=== PATIENT | male | born 1945 | race Caucasian/White ===

== ENCOUNTER 2019-11-27 15:43 | Inpatient (IN) | payer OTHER, MEDICAID ==
[~2019-11-27] VITALS: Ht 91.4 cm; Wt 73.9 kg
--- NOTE | 2019-11-27 15:43 | NUR ---
CHRISTOS RM ALS TO ER BED 04
[2019-11-27] MEDS ORDERED: NACL 0.9% 1,000 ML IV SCH (15:49)
[2019-11-27] MEDS ORDERED: cefTRIAXone 1,000 MG in DEXT 5% MINI-BAG PLUS 50 ML IV ONE (15:50)
[2019-11-27 16:14] VITALS: BP 100/68
--- NOTE | 2019-11-27 16:33 | NUR ---
74 YO MALE BIBA FROM [facility] C/O X 1 HOUR. PT WAS DESATURATING TO 84%; 3 BREATHING TREATMENTS WERE DONE IN [facility]. MASK APPLIED IN AMBULANCE, WHICH RAISED SAT TO 92%. PT WITH NOTED DEEP BREATHING, LUNGS CLEAR BL; PATIENT POSITIONED FOR COMFORT; HOB ELEVATED; BEDRAILS UP X2; BED DOWN. ER MD MADE AWARE OF PT STATUS.
[2019-11-27 16:46] LABS: BASOPHILS % (AUTO) 0.3 % (0.0-2.0); EOSINOPHILS % (AUTO) 0.1 % (0.0-4.0); HEMATOCRIT 37.4 % (36-52); HEMOGLOBIN 11.9 g/dL (12.0-18.0); LYMPHOCYTES # (AUTO) 0.8 K/uL (2.0-11.5); LYMPHOCYTES % (AUTO) 5.4 % (20.5-51.1); MEAN CORPUSCULAR HEMOGLOBIN 31 pg (27-31); MEAN CORPUSCULAR HGB CONC 32 g/dL (33-37); MONOCYTES # (AUTO) 1.1 K/uL (0.8-1.0); MONOCYTES % (AUTO) 7.4 % (1.7-9.3); NEUTROPHILS # (AUTO) 12.4 K/uL (1.8-7.7); NEUTROPHILS % (AUTO) 86.8 % (42.2-75.2); PLATELET COUNT (AUTO) 331 K/uL (140-450); RED CELL DISTRIBUTION WIDTH 14.5 % (11.6-13.7); WHITE BLOOD COUNT (AUTO) 14.3 K/uL (4.8-10.8)
[2019-11-27 17:19] LABS: ALBUMIN 2.8 g/dL (3.4-5.0); ANION GAP 15.4 (8-16); ASPARTATE AMINOTRANSFERASE 112 U/L (15-37); CARBON DIOXIDE 28.4 mmol/L (21-32); CHLORIDE 95 mmol/L (98-107); CREATININE 1.8 mg/dL (0.7-1.3); GLUCOSE 143 mg/dL (74-106); POTASSIUM 5.8 mmol/L (3.5-5.1); SODIUM SERUM 133 mmol/L (136-145); TOTAL BILIRUBIN 0.2 mg/dL (0.0-1.0)
[2019-11-27 17:44] LABS: UREA NITROGEN, BLOOD 65 mg/dL (7-18)
[2019-11-27 18:08] LABS: APPEARANCE,URINE SL CLOUDY (CLEAR); BILIRUBIN,URINE 2+ (NEGATIVE); BLOOD, URINE TRACE-I (NEGATIVE); COLOR,URINE YELLOW (YELLOW); LEUKOCYTE ESTERASE ,URINE 2+ (NEGATIVE); NITRITE, URINE NEGATIVE (NEGATIVE); PH,URINE 6.5 (5.0-9.0); UGLUCOSE NEGATIVE (NEGATIVE)
[2019-11-27] MEDS ORDERED: NACL 0.9% 1,000 ML IV ONE (18:10)
[2019-11-27 18:13] LABS: RBC,URINE 0-5 /HPF (0-5); WBC,URINE 16-25 (MOD) /HPF (0-5)
[2019-11-27] MEDS ORDERED: ONDANSETRON 4 MG/2 ML VIAL IM/IVP PRN (18:15)
[2019-11-27] MEDS ORDERED: HYDROcodone/APAP 5/325 MG 1 TAB TAB PO PRN (18:15)
[2019-11-27] MEDS ORDERED: SODIUM POLYSTYRENE 15 GM/60 ML UDBTL PO ONE (18:15)
[2019-11-27] MEDS ORDERED: DOCUSATE SODIUM 100 MG GELCAP PO PRN (18:15)
[2019-11-27] MEDS ORDERED: ACETAMINOPHEN 325 MG TAB PO PRN (18:15)
[2019-11-27] MEDS ORDERED: MORPHINE SULFATE 2 MG/ML SYR IVP PRN (18:15)
[2019-11-27 19:10] LABS: MAGNESIUM 2.3 mg/dL (1.8-2.4); PHOSPHORUS 6.9 mg/dL (2.5-4.9); THYROID STIMULATING HORMONE 2.16 uIU/mL (0.34-3.74)
[2019-11-27] MEDS ORDERED: cefTRIAXone 1,000 MG VIAL ONE (19:10)
--- NOTE | 2019-11-27 19:15 | NUR ---
REPORT RECEIVED FROM KEVON COUCH
--- NOTE | 2019-11-27 19:15 | NUR ---
PER KEVON RN PT HAS HAD MANY PREVIOUS ATTEMPTS AT GETTING AN IV FROM VARIOUS B[employer]FU[employer]S TECHNOLOGY MANAGER ATTEMPTING
--- NOTE | 2019-11-27 19:18 | NUR ---
PT IV SITE REDNESS WITH SWELLING, PT IV DISCONTINUED.
--- NOTE | 2019-11-27 19:30 | NUR ---
ATTEMPTS MADE AT IV ACCESS, UNABLE TO GET IV. DR MOISE MADE AWARE
--- NOTE | 2019-11-27 19:50 | NUR ---
DR MOISE NOTIFIED THAT PT NOT ABLE TO DRINK KAYAXELATE, STATES HE WILL CHANGE TO RECTAL
[2019-11-27] MEDS ORDERED: SODIUM POLYSTYRENE 15 GM/60 ML UDBTL PR ONE (19:55)
[2019-11-27 20:30] VITALS: BP 136/60
--- NOTE | 2019-11-27 20:30 | NUR ---
DR PEACOCK AWARE UNABLE TO GET REPEAT BLOOD DRAW FOR PT
--- NOTE | 2019-11-27 20:30 | NUR ---
DR PEACOCK MADE AWARE UNABLE TO GET LINE INTO PATIENT, STATES HE WILL HAVE TO DO A CENTRAL LINE
[2019-11-27] MEDS ORDERED: INSULIN REGULAR, HUMAN 100 UNIT/ML VIAL IVP SCH (20:40)
[2019-11-27] MEDS ORDERED: CALCIUM CHLORIDE 10% 100 MG/ML SYR IVP ONE (20:40)
[2019-11-27] MEDS ORDERED: CALCIUM GLUCONATE 10% 1,000 MG in NACL 0.9% 50 ML IV SCH (20:45)
[2019-11-27] MEDS ORDERED: ALBUTEROL SULFATE/IPRATROPIU 3 ML SOL IH SCH (20:55)
[2019-11-27] MEDS ORDERED: DEXTROSE 50% 50 ML SYR IVP SCH (20:55)
[2019-11-27] MEDS ORDERED: ALBUTEROL SULFATE/IPRATROPIU 3 ML SOL IH PRN (21:20)
--- NOTE | 2019-11-27 21:28 | NUR ---
RECEIVED FROM ER PER RUTHY AWAKE AND ALERT. A/O X 1. AFEBRILE. TELEMETRY MONITORING. PT. WITH COLOSTOMY AND MCGARRY CATHETER IN PLACE. DX. OF HYPOXIA FROM SNF. PRESENTLY WITH 02 NON REBREATHER MASK AND 02 SAT AT 96 %. PT. WITH UTI . NO FEVER. SKIN INTACT WITH AKA BILATERALLY. NEEDS WILL BE ANTICIPATED AND WILL BE MET. TOTAL CARE. WILL BE TURNED Q 2H. PT. PER REPORT NO IVF SITE AND BY LOBSTERMAN FOR PICC LINE INSERTION BY RESIDENT .
--- NOTE | 2019-11-27 21:30 | NUR ---
Patient will be admitted to care of DR JAY. Admited to TELE. Will go to room 122B. Belongings list completed. Report to GEMMA COUCH.
--- NOTE | 2019-11-27 22:47 | NUR ---
RESIDENT MD IN HERE AND PLACED CENTRAL LINE ON PT. ULTRA SOUND TECH IN HERE AND X-RAY TECH IN HERE TO CONFIRM PLACEMENT.
[2019-11-27] MEDS ORDERED: OMEP40EC14 PO (23:11)
[2019-11-27] MEDS ORDERED: ATOR10TA PO (23:11)
[2019-11-27] MEDS ORDERED: PUL.5N NEB (23:11)
[2019-11-27] MEDS ORDERED: MULT-153 PO (23:11)
[2019-11-27] MEDS ORDERED: CARV6.25 PO (23:11)
[2019-11-27] MEDS ORDERED: DILT-135 PO (23:11)
[2019-11-27] MEDS ORDERED: PRED5TAB7 PO (23:11)
[2019-11-27] MEDS ORDERED: CARB200T4 PO (23:11)
[2019-11-27] MEDS ORDERED: ALBU3SOL83 IH (23:11)
[2019-11-27] MEDS ORDERED: MEMA10TA PO (23:11)
[2019-11-27] MEDS ORDERED: PAM25 PO (23:11)
[2019-11-27] MEDS ORDERED: LACT-81 PO (23:11)
[2019-11-27] MEDS ORDERED: RIVA20TA PO (23:11)
[2019-11-28] VITALS: BP 112/61
--- NOTE | 2019-11-28 00:28 | NUR ---
PLACED PATIENT ON BiPAP DUE TO INCREASED WOB. PT TOLERATING BiPAP WELL. PT HAS SCABS ON THE NASAL BRIDGE WHICH DR. PEACOCK WAS NOTIFIED BEFORE PLACING PT ON BiPAP. PROTECTIVE GEL WAS APPLIED. WILL CONTINUE TO MONITOR.
[2019-11-28] MEDS ORDERED: PIPERACILLIN/TAZOBACTAM 2.25 GM VIAL IV ONE ×2 (00:47→06:48)
[2019-11-28] MEDS: PIPERACILLIN/TAZOBACTAM 2.25 GM in DEXTROSE 5% 50 ML IV SCH ×4 (00:48→23:06)
[2019-11-28] MEDS: DEXT 5% /NACL 0.9% 1,000 ML IV SCH ×2 (00:50→10:46)
--- NOTE | 2019-11-28 01:23 | NUR ---
PER RESIDENT MD TO NOT ADMINISTER ROCEPHIN IVPB ANYMORE. CENTRAL LINE OK TO USE PER MD.
[2019-11-28 01:51] LABS: ANION GAP 11.2 (8-16); CARBON DIOXIDE 30.5 mmol/L (21-32); CHLORIDE 98 mmol/L (98-107); GLUCOSE 121 mg/dL (74-106); POTASSIUM 5.7 mmol/L (3.5-5.1); SODIUM SERUM 134 mmol/L (136-145)
[2019-11-28 01:55] LABS: PROTHROMBIN TIME 9.8 secs (10.8-13.4)
[2019-11-28] MEDS ORDERED: DEXTROSE 50% 50 ML SYR IVP SCH (02:00)
[2019-11-28] MEDS ORDERED: INSULIN REGULAR, HUMAN 100 UNIT/ML VIAL IVP SCH (02:00)
[2019-11-28] MEDS ORDERED: CALCIUM GLUCONATE 10% 1,000 MG in NACL 0.9% 50 ML IV SCH (02:00)
[2019-11-28 02:04] LABS: UREA NITROGEN, BLOOD 72 mg/dL (7-18)
[2019-11-28] MEDS ORDERED: CALCIUM GLUCONATE 10% 1000 MG/10 ML VIAL ONE (02:15)
--- NOTE | 2019-11-28 02:55 | NUR ---
DECREASED EPAP TO DECREASED FI02 AND INCREASE PRESSURE SUPPORT AFTER OBTAINING ABG. Addendum: 11/28/19 at 0630 by Ryan Johnson RT DR PEACOCK WAS NOTIFIED. ORDER WAS OBTAINED.
--- NOTE | 2019-11-28 02:57 | NUR ---
PT. KEPT COMFORTABLE. ATTENDED TO BY RESPIRATORY THERAPIST AND RESIDENT MD FREQUENTLY. ON BIPAP. CENTRAL LINE 2 PORTS PATENT AND INTACT. FLUSHED WITH NS 10 ML PER PORT. Addendum: 11/28/19 at 0550 by Barb Bianchi RN CENTRAL LINE WITH 3 PORTS TO [facility].
[2019-11-28 04:00] VITALS: BP 95/60
--- NOTE | 2019-11-28 04:40 | NUR ---
PT. NEEDS WILL BE MET. TOTAL CARE. PRESENTLY PLACED ON BIPAP BY RESPIRATORY THERAPIST ORDERED BY RESIDENT MD. MCGARRY CATHETER IN PLACE WITH COLOSTOMY BAG IN PLACE. TURNED Q 2H WITH PILLOW SUPPORT TO PRESSURE AREAS. TELE,METRY MONITORING. AFEBRILE.
--- NOTE | 2019-11-28 04:50 | NUR ---
RESIDENT MD AWARE THAT PT. UNABLE TO SWALLOW AT THIS TIME REPORTED BY PRODUCT HANDLER. PT. WITH GENERALIZED WEAKNESS RT AFFLICTION. PER MD P.O. MEDICATION WAS TRIED TO BE ADMINISTERED IN ER BUT PT. REFUSED AND LIKELY WILL JUST POCKET MEDICATION. NEEDS WILL BE ANTICIPATED AND WILL BE MET. TOTAL CARE AT THIS TIME. TELEMETRY MONITORING.
[2019-11-28 06:37] LABS: BASOPHILS % (AUTO) 0.1 % (0.0-2.0); EOSINOPHILS % (AUTO) 0.2 % (0.0-4.0); HEMATOCRIT 31.8 % (36-52); LYMPHOCYTES # (AUTO) 0.9 K/uL (2.0-11.5); LYMPHOCYTES % (AUTO) 6.3 % (20.5-51.1); MEAN CORPUSCULAR HEMOGLOBIN 30 pg (27-31); MEAN CORPUSCULAR HGB CONC 32 g/dL (33-37); MEAN CORPUSCULAR VOLUME 96.1 fL (80-94); MONOCYTES # (AUTO) 1.5 K/uL (0.8-1.0); MONOCYTES % (AUTO) 10.9 % (1.7-9.3); NEUTROPHILS # (AUTO) 11.2 K/uL (1.8-7.7); NEUTROPHILS % (AUTO) 82.5 % (42.2-75.2); PLATELET COUNT (AUTO) 288 K/uL (140-450); RED BLOOD CELL COUNT(AUTO) 3.31 MIL/uL (4.20-6.10); RED CELL DISTRIBUTION WIDTH 14.1 % (11.6-13.7); WHITE BLOOD COUNT (AUTO) 13.6 K/uL (4.8-10.8)
--- NOTE | 2019-11-28 06:58 | NUR ---
RECEIVED PT ON BIPAP 15/03 R 14 FIO2 40%. PT TOLERATING WELL AT THIS TIME. PROTECTA GEL IS PLACED UNDER MASK FOR SKIN PROTECTION, SKIN IS INTACT THERE IS SLIGHT REDNESS NEAR CARCINOMA SITE BUT NO BREAKDOWN. BIPAP IS PLUGGED INTO A RED OUTLET WITH ALARMS ON AND FUNCTIONING. WILL CONTINUE TO MONITOR.
[2019-11-28] MEDS: ALBUTEROL SULFATE/IPRATROPIU 3 ML SOL IH SCH ×3 (06:59→19:00)
[2019-11-28 07:01] LABS: CHOL/HDL RATIO 2.8 (1-4.5)
[2019-11-28 07:07] LABS: CARBON DIOXIDE 30.4 mmol/L (21-32); CHLORIDE 100 mmol/L (98-107); CREATININE 1.9 mg/dL (0.7-1.3); GLUCOSE 93 mg/dL (74-106); POTASSIUM 5.4 mmol/L (3.5-5.1); SODIUM SERUM 135 mmol/L (136-145)
[2019-11-28 07:11] LABS: MAGNESIUM 2.1 mg/dL (1.8-2.4); PHOSPHORUS 6.8 mg/dL (2.5-4.9)
[2019-11-28 07:21] LABS: UREA NITROGEN, BLOOD 73 mg/dL (7-18)
--- NOTE | 2019-11-28 07:26 | NUR ---
ENDORSED TO TH NEXT RN FOR CONTINUITY OF CARE. RESPIRATORY THERAPIST IN HERE TO SEE PT. AWAKE AT THIS TIME. TRYING TO TAKE OUT MASK. INFORMED HIM THAT HE REALLY NEEDS IT AND NOT TO TAKE IT OUT.
--- NOTE | 2019-11-28 07:30 | NUR ---
RECEIVED REPORT FROM NIGHT NURSE. PT IN STABLE CONDITION, NO DISTRESS NOTED, FLACC 0. RESPIRATIONS EVEN AND UNLABORED RECEIVING OXYGEN VIA EPAP. SKIN INTACT. CENTRAL R IJ IN PLACE PATENT AND ASYMPTOMATIC INFUSING PER ORDER. MCGARRY CATHETER IN PLACE. BED IN LOW POSITION, SAFETY MEASURES IN PLACE, CALL LIGHT WITHIN REACH. WILL CONTINUE TO MONITOR.
[2019-11-28 08:00] VITALS: BP 124/58
[2019-11-28] MEDS: SEVELAMER CARBONATE 800 MG TAB PO SCH ×3 (08:00→16:01)
[2019-11-28] MEDS: carBAMazepine 200 MG TAB PO SCH (09:00)
[2019-11-28] MEDS: DILTIAZEM 120 MG CAPER PO SCH (09:00)
[2019-11-28] MEDS: CARVEDILOL 6.25 MG TAB PO SCH ×2 (09:00→21:00)
[2019-11-28] MEDS: NORTRIPTYLINE 25 MG CAP PO SCH (09:00)
[2019-11-28] MEDS: MEMANTINE 10 MG TAB PO SCH ×2 (09:00→21:00)
[2019-11-28] MEDS: LACTOBACILLUS RHAMNOSUS GG 1 EACH CAP PO SCH (09:00)
[2019-11-28] MEDS: predniSONE 5 MG TAB PO SCH (09:00)
[2019-11-28] MEDS: PANTOPRAZOLE 40 MG INJ VIAL IVP SCH (09:00)
[2019-11-28] MEDS: MULTIVITAMIN 1 TAB PO SCH (09:00)
--- NOTE | 2019-11-28 10:12 | NUR ---
PATIENT HAS BEEN SCREENED AND CATEGORIZED HIGH NUTRITION RISK. PATIENT WILL BE SEEN WITHIN 1-2 DAYS OF ADMISSION. 11/28/19-11/29/[address]
--- NOTE | 2019-11-28 10:29 | NUR ---
MADE ATTEMPT TO ADMINISTER ORAL MEDICATIONS PER ORDER OF DR PEACOCK, BUT PT UNABLE TO SWALLOW MEDICATIONS. 0900 PO MEDICATIONS NOT ADMINISTERED. WILL CONTINUE TO MONITOR.
--- NOTE | 2019-11-28 11:19 | NUR ---
PT SEEN BY WOUND CARE NURSE, PICTURE TAKEN AND PLACED IN FILE FOR WOUND ON BRIDGE OF NOSE. WILL CONTINUE TO MONITOR.
[2019-11-28 12:00] VITALS: BP 126/64
--- NOTE | 2019-11-28 13:04 | NUR ---
PT TAKEN OFF BIPAP TO DECREASE PRESSURE ON SKIN, PLACED ON 4L OXY SPO2 92%. PT NOT IN ANY DISTRESS AT THIS TIME. WILL CONTINUE TO MONITOR.
--- NOTE | 2019-11-28 13:28 | NUR ---
*S.T. Bedside Swallow Eval completed* See report. Pt presents w/ severe oropharyngeal dysphagia c/b difficulty managing oral boluses, requiring max verbal and tactile cues to initiate, severely delayed pharyngeal swallow response w/ delayed wet coughing after swallows across all textures. Pt is deemed at high risk for aspiration. Recommend: 1) Strict NPO w/ non-oral means of nutrition, hydration and meds. 2) Trial swallow tx w/ ST 2x/1wk. 3) Aggressive oral care. Pt's rehab potential is guarded due to hx of dementia and severity of dysphagia currently. Endorsed to KHOA Doherty. Time 6657-5000
[2019-11-28 16:00] VITALS: BP 130/62
[2019-11-28] MEDS ORDERED: FUROSEMIDE 100 MG/10 ML VIAL IV SCH (16:00)
[2019-11-28] MEDS: RIVAROXABAN 15 MG TAB PO SCH (16:01)
--- NOTE | 2019-11-28 16:02 | NUR ---
MEDICATIONS ADMINISTERED PER ORDER. ORAL MEDICATIONS HELD DUE TO PTS INABILITY TO SWALLOW. NO DISTRESS NOTED. SAFETY MEASURES IN PLACE. WILL CONTINUE TO MONITOR.
--- NOTE | 2019-11-28 17:03 | NUR ---
PT NASOTRACHEAL SUCTIONED WITHOUT INCIDENT, OBTAINED LARGE AMOUNT OF THICK PALE YELLOW SECRETIONS. POST SUCTION PT PLACED BACK ON BIPAP 14/5 R 14 FIO2 40%. NURSE MADE AWARE. WILL CONTINUE TO MONITOR.
--- NOTE | 2019-11-28 18:05 | NUR ---
PT IN BED ASLEEP, NO DISTRESS NOTED. O2 SAT 100% ON BIPAP. SAFETY MEASURES IN PLACE. CALL LIGHT WITHIN REACH, WILL CONTINUE TO MONITOR.
--- NOTE | 2019-11-28 19:15 | NUR ---
REPORT GIVEN TO NIGHT NURSE FOR CONTINUITY OF CARE.
--- NOTE | 2019-11-28 19:20 | NUR ---
RECEIVED PT IN STABLE CONDITION FROM AM NURSE. PT IS AWAKE,ALERT. ON TELE MONITOR. ON BIPAP O2 SAT 99%. NO RESPIRATORY DISTRESS NOTED. BEDREST. WITH WILLIAM AKA. SUPRAPUBIC CATHETER IN PLACED CONNECTED TO MCGARRY BAG. COLOSTOMY WITH HARD STOOL . BED ON LOW POSITION. SIDE RAILS UP X2. CALL LIGHT WITHIN EASY REACH. WILL CONTINUE TO MONITOR.
[2019-11-28 20:30] VITALS: BP 151/86
[2019-11-28] MEDS: ATORVASTATIN 20 MG TAB PO SCH (21:00)
--- NOTE | 2019-11-28 21:00 | NUR ---
MADE ROUNDS. PT ASLEEP. NO S/S OF MANY RESPIRATORY DISTRESS NOTED. 02 SAT 98%.
--- NOTE | 2019-11-28 23:00 | NUR ---
DR. MARIE MADE AWARE THAT PT CAN'T TAKE PO MEDS. SHE SAID OK TO HOLD PO MEDS TONIGHT. JUST TO LET HER KNOW OF ANY ABNORMAL BP .
--- NOTE | 2019-11-28 23:45 | NUR ---
BIPAP ALARMING. CAME TO CHECK ON PT. VERY CONGESTED. WITH SOME COUGH. NEED SUCTIONING. RT CAME.
[2019-11-29 00:20] VITALS: BP 152/78
[2019-11-29] MEDS: DEXT 5% /NACL 0.9% 1,000 ML IV SCH ×3 (01:31→23:43)
--- NOTE | 2019-11-29 02:00 | NUR ---
PT ASLEEP. NO S/S OF ANY RESPIRATORY DISTRESS NOTED. WILL CONTINUE TO MONITOR.
[2019-11-29 03:50] VITALS: BP 149/97
--- NOTE | 2019-11-29 03:50 | NUR ---
PT AWAKE. RT GAVE BREATHING TREATMENT. O2 SAT 95% WITH FIO2 30 %. ABLE TO GET SPECIMEN FOR INFLUENZA A AND B. SEND TO LAB.
--- NOTE | 2019-11-29 05:00 | NUR ---
PT REPOSITIONED FOR COMFORT. COLOSTOMY BAG FULL WITH HARD STOOL. BAG CHANGED TO A NEW ONE.
[2019-11-29 05:53] LABS: ANION GAP 8.6 (8-16); CARBON DIOXIDE 33.5 mmol/L (21-32); CHLORIDE 103 mmol/L (98-107); CREATININE 1.1 mg/dL (0.7-1.3); GLUCOSE 105 mg/dL (74-106); POTASSIUM 4.1 mmol/L (3.5-5.1); SODIUM SERUM 141 mmol/L (136-145); UREA NITROGEN, BLOOD 49 mg/dL (7-18)
[2019-11-29 05:59] LABS: BASOPHILS % (AUTO) 0.4 % (0.0-2.0); EOSINOPHILS % (AUTO) 0.3 % (0.0-4.0); HEMOGLOBIN 10.7 g/dL (12.0-18.0); LYMPHOCYTES # (AUTO) 0.8 K/uL (2.0-11.5); LYMPHOCYTES % (AUTO) 8.5 % (20.5-51.1); MEAN CORPUSCULAR HEMOGLOBIN 31 pg (27-31); MEAN CORPUSCULAR HGB CONC 32 g/dL (33-37); MEAN CORPUSCULAR VOLUME 95.4 fL (80-94); MONOCYTES % (AUTO) 10.8 % (1.7-9.3); NEUTROPHILS # (AUTO) 7.6 K/uL (1.8-7.7); PLATELET COUNT (AUTO) 325 K/uL (140-450); RED BLOOD CELL COUNT(AUTO) 3.46 MIL/uL (4.20-6.10); RED CELL DISTRIBUTION WIDTH 14.2 % (11.6-13.7); WHITE BLOOD COUNT (AUTO) 9.5 K/uL (4.8-10.8)
--- NOTE | 2019-11-29 06:00 | NUR ---
PT AWAKE. BIPAP ALARMING. CAME TO CHECK PT. PT HOLDING THE BIPAP TUBE, DISCONNECTED. CONNECTED BACK AND EXPLAINED TO PT NOT TO DO THAT. WILL CLOSELY MONITOR PT.
[2019-11-29 06:07] LABS: MAGNESIUM 1.9 mg/dL (1.8-2.4); PHOSPHORUS 3.9 mg/dL (2.5-4.9)
[2019-11-29] MEDS: ALBUTEROL SULFATE/IPRATROPIU 3 ML SOL IH SCH ×3 (06:11→20:22)
--- NOTE | 2019-11-29 06:11 | NUR ---
rec'd pt on kenan v60 bipap settings 14\5 rr 14 fio2 30% alarms and audible and ambu bag at side of bipap and bipap is plugged into red outlet, b\s are coarse bilaterally, no hhn given pt sleeping and high heart rate of 121 ptis wearing large face mask with redness to nose, pt is sleeping with no signs of distress noted at this time
[2019-11-29] MEDS: PIPERACILLIN/TAZOBACTAM 2.25 GM in DEXTROSE 5% 50 ML IV SCH ×3 (06:17→23:38)
--- NOTE | 2019-11-29 07:29 | NUR ---
ENDORSED PT IN STABLE CONDITION TO AM NURSE.
--- NOTE | 2019-11-29 07:30 | NUR ---
RECEIVED BEDSIDE REPORT FROM DATA WAREHOUSE DEVELOPER NURSE. PT IS AWAKE, NO S/S OF DISTRESS NOTED, ON BIPAP FIO2 30. R IJ CENTRAL LINE DOUBLE LUMEN INFUSING D5NS 50 ML/HR. SKIN INTACT ASIDE FROM BRUISING ON BUE'S. BLE'S ARE AMPUTATED ABOVE THE KNEE. PT HAS A COLOSTOMY BAG, CHANGED DURING DATA WAREHOUSE DEVELOPER. SUPRAPUBIC CATHETER IN PLACE. FALL PRECAUTIONS IN PLACE. CALL LIGHT IS WITHIN REACH. WILL CONTINUE TO MONITOR.
[2019-11-29 08:00] VITALS: BP 123/58
--- NOTE | 2019-11-29 10:01 | NUR ---
pt off bipap and placed on 7l oxymizer and gail crawford notified
--- NOTE | 2019-11-29 10:37 | NUR ---
PT SATTING 92-94% ON 7 L OXIMIZER WHEN PT IS REMINDED TO BREATHE WITH HIS NOSE. SATS NOTED TO GO DOWN TO 85-86% WHEN PT BREATHES WITH HIS MOUTH. PT BREATHES WITH HIS MOUTH MOST OF THE TIME. RT IS AWARE. PER DR CRAMER, PLAN IS TO WEAN PT OFF BIPAP.
--- NOTE | 2019-11-29 10:47 | NUR ---
DR WHITE AWARE THAT PT IS A HIGH RISK FOR ASPIRATION PER ST EVAL. HOLDING PO MEDS AT THIS TIME.
[2019-11-29 12:00] VITALS: BP 124/69
[2019-11-29] MEDS: SEVELAMER CARBONATE 800 MG TAB PO SCH ×3 (12:00→18:28)
--- NOTE | 2019-11-29 12:00 | NUR ---
i call [facility] talked to maida and verify the flu vaccine , given on Sep 2019.
--- NOTE | 2019-11-29 14:00 | NUR ---
*S.T. Treatment note* S: Pt seen at bedside w/ no family/caregiver present. Pt verbally denied pain. Pt off BiPap, using nasal rebreather O2. KHOA Lenz at bedside reported pt has order for NG tube placement. Pt mouth-breathing, with copious amounts of dried secretions in mouth. This clinician performed oral care at bedside using oral swabs with suction. O: Oral care performed. See above. P.O. trials applesauce, honey thick and nectar thick liquids via spoon and straw. A: Pt's swallow function much improved from yesterday. Pt presents with moderate oropharyngeal dysphagia c/b prolonged oral prep and bolus holding, delayed pharyngeal swallow initiation, but no overt s/s aspiration. Voice and respirations clear after swallows. No coughing observed. P: Recommend: 1. Advance to pureed diet, nectar thick liquids. Straws okay. 2. Crush P.O. meds and mix w/ puree such as applesauce. 3. 1:1 feeder w/ aspiration precautions. 4. AGGRESSIVE ORAL CARE 2-4X/DAY. 5. S.T. to f/u x 11/02wk Endorsed to KHOA Lenz. Time: 6991-5776
--- NOTE | 2019-11-29 14:39 | NUR ---
11/29/19 RD INITIAL ASSESSMENT COMPLETED PLEASE REFER TO NUTRITION ASSESSMENT UNDER CARE ACTIVITY FOR ESTIMATED NUTRITIONAL NEEDS. 1. CONTINUE PUREE DIET WITH NECTAR THICK LIQUIDS 2. ENCOURAGE PO INTAKE AND PROVIDE FEEDING ASSISTANCE IF NEEDED 3. RD TO FOLLOW-UP 3-5 DAYS, MODERATE RISK YESSENIA MOSQUERA, RD
[2019-11-29] MEDS: RIVAROXABAN 15 MG TAB PO SCH (14:49)
[2019-11-29] MEDS: PANTOPRAZOLE 40 MG INJ VIAL IVP SCH (14:50)
[2019-11-29] MEDS: CARVEDILOL 6.25 MG TAB PO SCH ×2 (14:50→21:47)
[2019-11-29] MEDS: carBAMazepine 200 MG TAB PO SCH (14:51)
[2019-11-29] MEDS: predniSONE 5 MG TAB PO SCH (14:51)
[2019-11-29] MEDS: LACTOBACILLUS RHAMNOSUS GG 1 EACH CAP PO SCH (14:51)
[2019-11-29] MEDS: NORTRIPTYLINE 25 MG CAP PO SCH (14:51)
[2019-11-29] MEDS: MULTIVITAMIN 1 TAB PO SCH (14:51)
[2019-11-29] MEDS: DILTIAZEM 120 MG CAPER PO SCH (14:52)
[2019-11-29] MEDS: MEMANTINE 10 MG TAB PO SCH ×2 (14:52→21:46)
--- NOTE | 2019-11-29 15:07 | NUR ---
SCHEDULED AM MEDS ADMINISTERED CRUSHED WITH APPLE SAUCE, PT TOLERATED WELL, NO S/S OF DYSPHAGIA NOTED. HELD THE 1200 PM DOSE OF RENVELA BECAUSE THE AM DOSE WAS GIVEN LATE.
[2019-11-29 16:00] VITALS: BP 119/72
--- NOTE | 2019-11-29 19:20 | NUR ---
PT ENDORSED TO MANAGING SUPERVISOR NURSE IN STABLE CONDITION.
--- NOTE | 2019-11-29 19:25 | NUR ---
RECEIVED PT IN STABLE CONDITION FROM AM NURSE. PT IS AWAKE,ALERT AND ORIENTED X2. WITH NO RESPIRATORY DISTRESS NOTED. ON O2 7L BY OXYMIZER. HAS IVF INFUSING WELL ON THE RIGHT IJ CENTRAL LINE DOUBLE LUMEN. BEDBOUND DUE TO WILLIAM AKA. HAS PRESSURE WOUND ON THE BRIDGE OF NOSE. VERSATEL DRESSING APPLIED. NO DRAINAGE NOTED. VITAL SIGNS STABLE. ON SAT 98%. BED ON LOW POSITION. FREQ ROUNDS NEEDED. SIDE RAILS UP X2 AND PADDED FOR SEIZURE PRECAUTIONS. CALL LIGHT PLACED WITHIN REACH. WILL CONTINUE TO MONITOR.
[2019-11-29 20:00] VITALS: BP 121/82
--- NOTE | 2019-11-29 20:29 | NUR ---
RECEIVED PT ON 7L OXIMIZER WITH SP02 OF 95% AND A COARSE BREATH SOUNDS ON THE UPPER LOBES. NO RESPIRATORY DISTRESS NOTED AT THIS TIME. HHN TX GIVEN ORDERED WITH NO ADVERSE REACTION. WILL CONTINUE TO MONITOR PT.
--- NOTE | 2019-11-29 21:30 | NUR ---
PT TOLERATED PO MEDS ,CRUSHED AND MIXED WITH APPLE SAUCE FOLLOWED WITH THICK LIQUIDS. PT REPOSITIONED FOR COMFORT.
[2019-11-29] MEDS: ATORVASTATIN 20 MG TAB PO SCH (21:47)
--- NOTE | 2019-11-29 23:00 | NUR ---
MADE ROUNDS. PT IS ASLEEP. NO S/S OF ANY DISTRESS NOTED.
[2019-11-30] VITALS: BP 96/51
--- NOTE | 2019-11-30 00:30 | NUR ---
PT ASLEEP. NO S/S FO ANY DISCOMFORT NOTED. WILL CONTINUE TO MONITOR.
--- NOTE | 2019-11-30 02:00 | NUR ---
MADE ROUNDS. PT AWAKE WITH O2 SAT 94%. NO DISTRESS NOTED.
[2019-11-30 04:00] VITALS: BP 129/66
--- NOTE | 2019-11-30 04:20 | NUR ---
DRESSING CLEANED AND CHANGED ON R IJ CENTRAL LINE FOLLOWING ASEPTIC TECHNIQUE ,DATE AND TIME NOTED,
[2019-11-30 06:16] LABS: CHLORIDE 109 mmol/L (98-107); CREATININE 0.8 mg/dL (0.7-1.3); GLUCOSE 113 mg/dL (74-106); SODIUM SERUM 146 mmol/L (136-145); UREA NITROGEN, BLOOD 32 mg/dL (7-18)
[2019-11-30] MEDS: PIPERACILLIN/TAZOBACTAM 2.25 GM in DEXTROSE 5% 50 ML IV SCH ×3 (06:23→23:20)
[2019-11-30 06:27] LABS: BASOPHILS % (AUTO) 0.3 % (0.0-2.0); EOSINOPHILS # (AUTO) 0.1 K/uL (0-0.4); EOSINOPHILS % (AUTO) 1.1 % (0.0-4.0); HEMOGLOBIN 9.6 g/dL (12.0-18.0); LYMPHOCYTES # (AUTO) 0.7 K/uL (2.0-11.5); LYMPHOCYTES % (AUTO) 8.2 % (20.5-51.1); MEAN CORPUSCULAR HEMOGLOBIN 31 pg (27-31); MEAN CORPUSCULAR HGB CONC 32 g/dL (33-37); MEAN CORPUSCULAR VOLUME 95.2 fL (80-94); MONOCYTES # (AUTO) 0.9 K/uL (0.8-1.0); MONOCYTES % (AUTO) 11.3 % (1.7-9.3); NEUTROPHILS # (AUTO) 6.6 K/uL (1.8-7.7); NEUTROPHILS % (AUTO) 79.1 % (42.2-75.2); PLATELET COUNT (AUTO) 302 K/uL (140-450); RED BLOOD CELL COUNT(AUTO) 3.15 MIL/uL (4.20-6.10); RED CELL DISTRIBUTION WIDTH 14.1 % (11.6-13.7); WHITE BLOOD COUNT (AUTO) 8.4 K/uL (4.8-10.8)
[2019-11-30 06:28] LABS: MAGNESIUM 1.9 mg/dL (1.8-2.4); PHOSPHORUS 1.7 mg/dL (2.5-4.9)
[2019-11-30 06:31] LABS: ANION GAP 6.4 (8-16); CARBON DIOXIDE 34.6 mmol/L (21-32)
--- NOTE | 2019-11-30 06:52 | NUR ---
LAB CALLED FOR TROPONIN 0.644. RESULT TRENDING DOWN.
[2019-11-30] MEDS: ALBUTEROL SULFATE/IPRATROPIU 3 ML SOL IH SCH ×3 (07:09→20:39)
--- NOTE | 2019-11-30 07:26 | NUR ---
ENDORSED PT IN STABLE CONDITION TO AM NURSE.
--- NOTE | 2019-11-30 07:28 | NUR ---
RECEIVED REPORT FROM NIGHT RN. PT RESTING IN BED. AAOX4, NO S/S OF ACUTE DISTRESS PT DENIES PAIN. SUPRAPUBLIC CATHETER PATENT, RIGHT SUBCLAVIAN PATENT AND INTACT. ON 2O2 7L OXIMIZER. CALL LIGHT WITHIN REACH. SAFETY MEASURES ENSURED. WILL CONTINUE TO MONITOR.
[2019-11-30 08:00] VITALS: BP 144/78
[2019-11-30] MEDS: carBAMazepine 200 MG TAB PO SCH (09:24)
[2019-11-30] MEDS: DILTIAZEM 120 MG CAPER PO SCH (09:25)
[2019-11-30] MEDS: CARVEDILOL 6.25 MG TAB PO SCH ×2 (09:25→20:30)
[2019-11-30] MEDS: MEMANTINE 10 MG TAB PO SCH ×2 (09:25→20:30)
[2019-11-30] MEDS: LACTOBACILLUS RHAMNOSUS GG 1 EACH CAP PO SCH (09:25)
[2019-11-30] MEDS: predniSONE 5 MG TAB PO SCH (09:25)
[2019-11-30] MEDS: MULTIVITAMIN 1 TAB PO SCH (09:25)
[2019-11-30] MEDS: NORTRIPTYLINE 25 MG CAP PO SCH (09:25)
[2019-11-30] MEDS: PANTOPRAZOLE 40 MG INJ VIAL IVP SCH (09:26)
[2019-11-30] MEDS: SEVELAMER CARBONATE 800 MG TAB PO SCH ×2 (09:30→12:43)
[2019-11-30 12:00] VITALS: BP 122/73
--- NOTE | 2019-11-30 12:06 | NUR ---
Late entry. Confirmed with RN that 0.9 NS IV completed at 191
--- NOTE | 2019-11-30 12:14 | NUR ---
PT SLEEPING IN BED. NO S/S OF ACUTE DISTRESS. FLACC-0. CALL LIGHT WITHIN REACH. SAFETY MEASURES ENSURED. WILL CONTINUE TO MONITOR.
--- NOTE | 2019-11-30 14:34 | NUR ---
Mill Operator Note: Basic Screen: Yes High Risk DC Screen Yes Name: N/A Pre-Admission Living Arrangements: SNF Other: [facility] Prior ADL Total/Dependent Current Home Health Name/Tel: N/A Current DME/02 Name/Tel: N/A Current Hospice Name/Tel: N/A Current Dialysis Name/Tel: N/A Healthcare Decision Maker: Community/returned case inspector Other: [employer] Advance Directive No Physician Orders for Life Sustaining Treatment Form No Patient/Family Have Educational Needs No Discipline: Case Mgt/Social Svcs Tentative Discharge Plan/Destination: SNF/ECF Will require assistance post discharge: No Referred to Assembly Line Driver: No Tentative Discharge Plan Summary: Patient is a 74-year-old male admitted for UTI, hypoxia, and ALOC. Patient has PMHX of dementia, atrial fibrillation, seizure disorder, HTN, HLD, dysphagia, and COPD. Patient was admitted from [facility]. SW contacted [facility] [phone] and spoke to [facility]. Per [facility], patient is fci and on a bed hold. Gregory stated that patient needs total assistance with ADLs. Patient's discharge plan after discharge is to return to [facility]. No further needs identified. Signature: HERRERA Lambert Date: Nov 30, 2019 Time: 14:31
[2019-11-30 16:00] VITALS: BP 135/75
[2019-11-30] MEDS ORDERED: FUROSEMIDE 20 MG/2 ML VIAL IVP SCH (16:40)
[2019-11-30] MEDS: RIVAROXABAN 15 MG TAB PO SCH (17:48)
--- NOTE | 2019-11-30 19:07 | NUR ---
REPORT RECEIVED FROM AM NURSE AT BEDSIDE. PT IN STABLE CONDITION. AAOX1-2. INTRODUCED SELF TO PT. BOARD UPDATED. NO COMPLAINTS OF PAIN. NO SOB ON 4L O2 VIA OXYMIZER. AFEBRILE. COLOSTOMY IN PLACE. SUPRAPUBIC CATHETER IN PLACE. PT IS BEDBOUND DUE TO BILATERAL AKA. IV SITE R SUBCLAVIAN DOUBLE LUMEN SL PATENT AND INTACT. SKIN WARM, DRY, AND NOT INTACT DUE TO PRESSURE WOUND TO THE BRIDGE OF THE NOSE. BED LOCKED IN LOW POSITION. CALL [place] WITHIN REACH. SAFETY PRECAUTION IN PLACE. ALL NEEDS MET AT THIS TIME.
[2019-11-30 20:00] VITALS: BP 151/92
[2019-11-30] MEDS: ATORVASTATIN 20 MG TAB PO SCH (20:30)
--- NOTE | 2019-11-30 20:30 | NUR ---
COREG, LIPITOR, AND NAMENDA GIVEN PO. PT TOLERATED WELL.
--- NOTE | 2019-11-30 20:45 | NUR ---
RECEIVED PT ON 4L OXIMIZER WITH SP02 OF 96% AND A COARSE BREATH SOUNDS ON THE UPPER LOBES. NO RESPIRATORY DISTRESS NOTED AT THIS TIME. HHN TX GIVEN ORDERED WITH NO ADVERSE REACTION. BiPAP AT BEDSIDE FOR INCREASED WOB. WILL CONTINUE TO MONITOR PT.
--- NOTE | 2019-11-30 22:20 | NUR ---
PT LAYING IN BED WATCHING TV. NO S/S OF DISTRESS NOTED. WILL CONTINUE TO MONITOR.
--- NOTE | 2019-11-30 23:20 | NUR ---
JAMES HUNG AND RUNNING. PT TOLERATING WELL.
[2019-12-01] VITALS: BP 129/77
--- NOTE | 2019-12-01 01:20 | NUR ---
PT SLEEPING COMFORTABLY BUT AROUSABLE. NO S/S OF DISTRESS NOTED. NO COMPLAINTS OF PAIN. NO SOB. AFEBRILE. WILL CONTINUE TO MONITOR.
--- NOTE | 2019-12-01 03:00 | NUR ---
PT SLEEPING COMFORTABLY BUT AROUSABLE. NO S/S OF DISTRESS NOTED. RESPIRATIONS EVEN, UNLABORED, AND WNL. WILL CONTINUE TO MONITOR.
[2019-12-01 04:00] VITALS: BP 137/87
--- NOTE | 2019-12-01 04:50 | NUR ---
PT UP AND AWAKE WATCHING TV. NO S/S OF DISTRESS NOTED. NO COMPLAINTS OF PAIN. NO SOB. AFEBRILE. WILL CONTINUE TO MONITOR.
[2019-12-01] MEDS: PIPERACILLIN/TAZOBACTAM 2.25 GM in DEXTROSE 5% 50 ML IV SCH (06:05)
--- NOTE | 2019-12-01 06:05 | NUR ---
JAMES HUNG AND RUNNING. PT TOLERATING WELL.
--- NOTE | 2019-12-01 06:50 | NUR ---
PT SLEEPING COMFORTABLY BUT AROUSABLE. PT IN STABLE CONDITION.
--- NOTE | 2019-12-01 07:20 | NUR ---
RECEIVED REPORT FROM NIGHT RN. PT RESTING IN BED. NO S/S OF ACUTE DISTRESS. FLACC-0. DOUBLE LUMEN PATENT AND INTACT. SUPRAPUBIC CATHETER AND COLOSTOMY PATENT. CALL LIGHT WITHIN REACH. SAFETY MEASURES ENSURED. WILL CONTINUE TO MONITOR.
[2019-12-01 07:22] LABS: BASOPHILS % (AUTO) 0.5 % (0.0-2.0); EOSINOPHILS # (AUTO) 0.2 K/uL (0-0.4); EOSINOPHILS % (AUTO) 2.3 % (0.0-4.0); HEMATOCRIT 31.3 % (36-52); LYMPHOCYTES % (AUTO) 11.8 % (20.5-51.1); MEAN CORPUSCULAR HEMOGLOBIN 31 pg (27-31); MEAN CORPUSCULAR HGB CONC 32 g/dL (33-37); MEAN CORPUSCULAR VOLUME 95.6 fL (80-94); MONOCYTES % (AUTO) 11.9 % (1.7-9.3); NEUTROPHILS # (AUTO) 6.4 K/uL (1.8-7.7); NEUTROPHILS % (AUTO) 73.5 % (42.2-75.2); PLATELET COUNT (AUTO) 332 K/uL (140-450); RED BLOOD CELL COUNT(AUTO) 3.28 MIL/uL (4.20-6.10); RED CELL DISTRIBUTION WIDTH 13.9 % (11.6-13.7); WHITE BLOOD COUNT (AUTO) 8.7 K/uL (4.8-10.8)
[2019-12-01 08:00] VITALS: BP 151/85
[2019-12-01] MEDS: ALBUTEROL SULFATE/IPRATROPIU 3 ML SOL IH SCH (08:38)
[2019-12-01 08:44] LABS: MAGNESIUM 1.8 mg/dL (1.8-2.4); PHOSPHORUS 1.8 mg/dL (2.5-4.9)
[2019-12-01] MEDS ORDERED: FUROSEMIDE 20 MG/2 ML VIAL IVP SCH (09:00)
[2019-12-01] MEDS: LACTOBACILLUS RHAMNOSUS GG 1 EACH CAP PO SCH (09:07)
[2019-12-01] MEDS: NORTRIPTYLINE 25 MG CAP PO SCH (09:07)
[2019-12-01] MEDS: DILTIAZEM 120 MG CAPER PO SCH (09:08)
[2019-12-01] MEDS: CARVEDILOL 6.25 MG TAB PO SCH (09:08)
[2019-12-01] MEDS: carBAMazepine 200 MG TAB PO SCH (09:08)
[2019-12-01] MEDS: MEMANTINE 10 MG TAB PO SCH (09:08)
[2019-12-01] MEDS: PANTOPRAZOLE 40 MG INJ VIAL IVP SCH (09:09)
[2019-12-01] MEDS: predniSONE 5 MG TAB PO SCH (09:09)
[2019-12-01] MEDS: MULTIVITAMIN 1 TAB PO SCH (09:09)
[2019-12-01 09:13] LABS: ANION GAP 11.8 (8-16); CHLORIDE 109 mmol/L (98-107); CREATININE 0.8 mg/dL (0.7-1.3); GLUCOSE 152 mg/dL (74-106); POTASSIUM 3.8 mmol/L (3.5-5.1); SODIUM SERUM 149 mmol/L (136-145); UREA NITROGEN, BLOOD 22 mg/dL (7-18)
[2019-12-01] MEDS ORDERED: FURO-572 PO (09:23)
[2019-12-01] MEDS ORDERED: PIPE1PDS39 IV (10:47)
[2019-12-01] MEDS ORDERED: RIVA15TA1 PO (10:47)
--- NOTE | 2019-12-01 10:54 | NUR ---
KHOA DIEGO REMAINED TO FOLLOW UP ON IMMUNIZATION STATUS AND DOCUMENT BEFORE DISCHARGING THE PATIENT.
--- NOTE | 2019-12-01 11:13 | NUR ---
DC PLANNING: PATIENT HAS A DC ORDER CALLED [facility] SPOKE WITH SILVIA ,PT CAN GO TO ROOM 220B ,# TO GIVE REPORT [phone] ARRANGED TRANSPORT WITH [facility] [phone] LIP AND GATE BUILDER TIME 1PM
--- NOTE | 2019-12-01 11:53 | NUR ---
PER [facility] PATIENT IS UTD ON FLU/PNA VACCINE.
[2019-12-01 12:00] VITALS: BP 135/83
--- NOTE | 2019-12-01 13:45 | NUR ---
PT PICKED UP FROM [place]. NO S/S OF ACUTE DISTRESS. FLACC-0. PT SENT WITH COLOSTOMY, SUPRAPUBIC CATHETER AND CENTRAL LINE.
== END 2019-12-01 13:49 | DRG 871 ==
LOC: MED 15:43 → MMU 18:18 → MTU 23:11
PROVIDERS: ADMIT General Practice; ATTEND General Practice
PROC: 02HV33Z Insertion of Infusion Device into Superior Vena Cava, Percutaneous Approach (ICD-10-PCS; 2019-11-27)
PROC: B548ZZA Ultrasonography of Superior Vena Cava, Guidance (ICD-10-PCS; 2019-11-27)
PROC: 5A09357 Assistance with Respiratory Ventilation, Less than 24 Consecutive Hours, Continuous Positive Airway Pressure (ICD-10-PCS; 2019-11-28)
PROC: 5A09357 Assistance with Respiratory Ventilation, Less than 24 Consecutive Hours, Continuous Positive Airway Pressure (ICD-10-PCS; principal; 2019-11-29)
DX: A41.9 Sepsis, unspecified organism (principal); I50.43 Acute on chronic combined systolic (congestive) and diastolic (congestive) heart failure; I21.A1 Myocardial infarction type 2; N17.0 Acute kidney failure with tubular necrosis; E43 Unspecified severe protein-calorie malnutrition; J96.21 Acute and chronic respiratory failure with hypoxia; J96.22 Acute and chronic respiratory failure with hypercapnia; J69.0 Pneumonitis due to inhalation of food and vomit; Z68.45 Body mass index [BMI] 70 or greater, adult; N17.9 Acute kidney failure, unspecified; J44.1 Chronic obstructive pulmonary disease with (acute) exacerbation; I48.92 Unspecified atrial flutter; E87.1 Hypo-osmolality and hyponatremia; R65.20 Severe sepsis without septic shock; B96.89 Other specified bacterial agents as the cause of diseases classified elsewhere; E78.00 Pure hypercholesterolemia, unspecified; F03.90 Unspecified dementia, unspecified severity, without behavioral disturbance, psychotic disturbance, mood disturbance, and anxiety; G40.909 Epilepsy, unspecified, not intractable, without status epilepticus; E78.5 Hyperlipidemia, unspecified; N30.90 Cystitis, unspecified without hematuria; E87.6 Hypokalemia; E83.39 Other disorders of phosphorus metabolism; E66.9 Obesity, unspecified; R13.10 Dysphagia, unspecified; I12.9 Hypertensive chronic kidney disease with stage 1 through stage 4 chronic kidney disease, or unspecified chronic kidney disease; I48.91 Unspecified atrial fibrillation; I73.9 Peripheral vascular disease, unspecified; N18.9 Chronic kidney disease, unspecified; Z85.828 Personal history of other malignant neoplasm of skin; Z89.611 Acquired absence of right leg above knee; Z89.612 Acquired absence of left leg above knee; Z93.3 Colostomy status; Z88.8 Allergy status to other drugs, medicaments and biological substances; Z74.01 Bed confinement status
CPT/HCPCS: 36415; 36600; 71045; 80048; 80053; 81001; 82803; 82948; 83036; 83605; 83690; 83735; 83880; 84100; 84443; 84484; 85025; 85610; 85730; 87040; 87081; 87086; 87186; 87804; 92526; 92610; 93005; 94640; 94660; 96360; 99285; C9113; J0610; J0696; J1642; J1815; J1940; J2543; J7030; J7042; J7060; J7512; J7620; Q0092